=== PATIENT | male | born 1985 | race Hispanic/Latino ===

== ENCOUNTER 2018-03-25 12:13 | Emergency (ER) | payer SELFPAY ==
[2018-03-25 12:44] VITALS: BP 109/84
--- NOTE | 2018-03-25 16:26 | Emergency Department Report ---
Blank Doc - Documentation Documentation: 32-year-old male came in complaining of right hand pain for past 2 weeks on and off. Patient states that he went bowling about 2 weeks ago and then he scraped part of the skin off and that he doesn't know if he got bit he's been having pain and swelling in his right hand. Patient denies any fever or chills. She denies any nausea vomiting suspicious of breath. Patient has a good mobility of the hand, good pulses present exam: + slight erythema noted on the right hand, good pulses present, able to move hand in all directions
[2018-03-25 16:48] LABS: Basophils # (Auto) 0.1 K/mm3 (0.0-0.1); Basophils % (Auto) 1.1 % (0.0-1.8); Eosinophils # (Auto) 0.5 K/mm3 (0.0-0.4); Eosinophils % (Auto) 4.3 % (0.0-4.3); Hematocrit 46.7 % (35.5-45.6); Hemoglobin 15.8 gm/dl (11.8-15.2); Lymphocytes # (Auto) 1.9 K/mm3 (1.2-5.4); Lymphocytes % (Auto) 16.4 % (13.4-35.0); Mean Corpuscular HGB Conc 34 % (32-34); Mean Corpuscular Hemoglobin 31 pg (28-32); Mean Corpuscular Volume 90 fl (84-94); Monocytes # (Auto) 0.9 K/mm3 (0.0-0.8); Monocytes % (Auto) 7.5 % (0.0-7.3); Platelet Count 174 K/mm3 (140-440); Red Blood Count 5.19 M/mm3 (3.65-5.03); Red Cell Distribution Width 12.9 % (13.2-15.2)
[2018-03-25 17:00] LABS: Alanine Aminotransferase 19 units/L (7-56); Albumin 4.1 g/dL (3.9-5); BUN/Creatinine Ratio 15; Blood Urea Nitrogen 9 mg/dL (9-20); Calcium 8.8 mg/dL (8.4-10.2); Hemolysis Index 3
--- NOTE | 2018-03-25 17:06 | XRay Report ---
FINAL REPORT PROCEDURE: XR HAND 3+V RT TECHNIQUE: Right hand, AP and lateral views HISTORY: RT hand pain COMPARISON: No prior studies are available for comparison. FINDINGS: No acute fracture or dislocation is seen. No focal osseous lesions are identified. IMPRESSION: No acute fracture is identified
[2018-03-25] MEDS ORDERED: ZOSYN/NS 3.375GM/50ML 3.375 GM/50 ML BAG IV ONE (18:00)
--- NOTE | 2018-03-25 20:16 | Emergency Department Report ---
Upper Extremity - [facility] Chief Complaint: Extremity Injury, Upper Stated Complaint: RIGHT HAND SWOLLEN Time Seen by Provider: 03/25/18 16:07 Upper Extremity: Right Hand (redness swelling and pain), Right Thumb (redness swelling and pain) Occurred When: >5 Days (2 weeks) Mechanism: Unsure Severity: severe (8/10) Symptoms: Yes Pain with Movement (right thumb and hand), Yes Swelling (right thumb and hand), Yes Laceration or Abrasion (scratch caroline noted to right thumb I ), No Deformity, No Limited Range of Movement (no limitation or pain with movement), No Numbness, No Weakness, No Bruising/Ecchymosis Other History: 32-year-old male came in complaining of right hand pain for past 2 weeks on and off. Patient states that he went bowling about 2 weeks ago and then he scraped part of the skin off and that he doesn't know if he got bit he' s been having pain and swelling in his right hand. Patient denies any fever or chills. She denies any nausea vomiting suspicious of breath. Denies any nausea or vomiting. Patient reports that it started with his right thumb and it spread to his hand. Pain is 8 out of 10 worse with movement better with rest then. He denies taking any medication and said his tetanus vaccine is less than 4 years. Denies restriction of movement to his hand. Positive redness swelling and pain right hand. Patient is right handed ED Review of Systems ROS: Stated complaint: RIGHT HAND SWOLLEN Other details as noted in HPI Constitutional: denies: chills, fever Eyes: denies: eye pain, eye discharge, vision change ENT: denies: ear pain, throat pain Respiratory: denies: cough, shortness of breath, SOB with exertion, SOB at rest , wheezing Cardiovascular: denies: chest pain, palpitations, edema, syncope Gastrointestinal: denies: abdominal pain, nausea, vomiting, diarrhea Musculoskeletal: joint swelling (a thumb and hand), arthralgia (right hand and fingers of right hand). denies: back pain Skin: rash (abrasion right thumb). denies: lesions Neurological: denies: headache, weakness, numbness, paresthesias, confusion, abnormal gait, vertigo ED Past Medical Hx - Past Medical History Previous Medical History?: Yes Hx Asthma: Yes - Surgical History Past Surgical History?: No - Family History Family history: hypertension - Social History Smoking Status: Current Some Day Smoker Substance Use Type: None Other Social History: Lives with family - Medications Home Medications: Home Medications Medication Instructions Recorded Confirmed Last Taken Type Acetaminophen/Codeine [Tylenol 1 tab PO Q6H PRN #12 tab 03/25/18 Unknown Rx /Codeine # 3 tab] Cephalexin [Keflex] 500 mg PO Q8HR 10 Days #30 cap 03/25/18 Unknown Rx Ibuprofen [Motrin] 600 mg PO Q8H PRN #15 tablet 03/25/18 Unknown Rx Sulfamethoxazole/Trimethoprim 1 each PO BID 10 Days #20 tablet 03/25/18 Unknown Rx [Bactrim DS TAB] Upper Extremity Exam - Exam General: Vital signs noted. No distress. Alert and acting appropriately. This is a 32-year-old male well-nourished well-developed in no acute distress and nontoxic in appearance. Head and Torso: No HEENT Abnormality (Normal exam), No Neck Tenderness (Full ROM. supple), No Chest/Lungs Abnormality (No CWT. CTAB), No Abdominal Tenderness (NTTP. ), No Back Tenderness (No vertebral tenderness) Shoulder Exam: Yes Normal Range of Motion in Shoulder, No Shoulder Tenderness Arm Exam: No Arm/Humerus Tenderness, No Arm Deformity Elbow: Yes Normal Range of Motion in Elbow, No Elbow Tenderness, No Elbow Deformity Forearm: No Forearm Tenderness, No Forearm Deformity, No Pain with Pronation, No Pain with Supination Wrist: Yes Normal ROM in Wrist, No Wrist Tenderness, No Wrist Deformity, No Snuffbox Tenderness, No Pain with Axial Thumb Compression Hand: Yes Hand Tenderness (Rt hand dorsom,), Yes Digit Tenderness (Rt Thumb), Yes Normal ROM in Digit(s) (Pain with ROM. No rstriction in MVMT), No Hand Deformity, No Digit(s) Deformity, No Tendon Dysfunction CMS Exam: Yes Broken Skin (Rt thumb siatall with small sore. scabbing noted), Yes Normal Distal Pulses (2+ radial /Ulnar pulses), Yes Normal Capillary Refill (< 3 secs BUE), Yes Normal Distal Sensation (Good CMST to upper extremities) Hand L/R Back: 1 - Redness, swelling and TTP . NL rom 2 - Rt thumb swelling, redness, TTP extending distally,proximall and to dorsom of RT hand. FROM. minimal induration around nail bed without fluctuance. ED Course Vital Signs 03/25/18 12:41 Temperature 98.6 F Pulse Rate 85 Respiratory 18 Rate Blood Pressure 109/84 O2 Sat by Pulse 97 Oximetry Vital Signs 03/25/18 03/25/18 12:41 21:14 Temperature 98.6 F 99.5 F Pulse Rate 85 76 Respiratory 18 20 Rate Blood Pressure 109/84 O2 Sat by Pulse 97 99 Oximetry - Reevaluation(s) Reevaluation #1: 03/25/18 20:54 She was screened by Dr. Ludwig and penicillin 3.375 g given IV for cellulitis of right thumb and hand. Patient had no adverse reaction from medication TD UTD Reevaluation #2: 03/25/18 21:09 Patient given Hondo 5/325 mg 2 tablets by mouth for right hand and finger pain but he said he could not wait to be reevaluated for effectiveness of medication. ED Medical Decision Making - Lab Data Result diagrams: 03/25/18 16:28 03/25/18 16:28 Lab Results 03/25/18 03/25/18 03/25/18 Range/Units 16:28 16:28 16:28 WBC 11.6 H (4.5-11.0) K/mm3 RBC 5.19 H (3.65-5.03) M/mm3 Hgb 15.8 H (11.8-15.2) gm/dl Hct 46.7 H (35.5-45.6) % MCV 90 (84-94) fl MCH 31 (28-32) pg MCHC 34 (32-34) % RDW 12.9 L (13.2-15.2) % Plt Count 174 (140-440) K/mm3 Lymph % (Auto) 16.4 (13.4-35.0) % [place] % (Auto) 7.5 H (0.0-7.3) % Eos % (Auto) 4.3 (0.0-4.3) % Baso % (Auto) 1.1 (0.0-1.8) % Lymph # 1.9 (1.2-5.4) K/mm3 [place] # 0.9 H (0.0-0.8) K/mm3 Eos # 0.5 H (0.0-0.4) K/mm3 Baso # 0.1 (0.0-0.1) K/mm3 Seg Neutrophils % 70.7 H (40.0-70.0) % Seg Neutrophils # 8.2 H (1.8-7.7) K/mm3 Sodium 137 (137-145) mmol/L Potassium 4.2 (3.6-5.0) mmol/L Chloride 102.4 (98-107) mmol/L Carbon Dioxide 25 (22-30) mmol/L Anion Gap 14 mmol/L BUN 9 (9-20) mg/dL Creatinine 0.6 L (0.8-1.5) mg/dL Estimated GFR > 60 ml/min BUN/Creatinine Ratio 15 % Glucose 96 (75-100) mg/dL Lactic Acid 0.70 (0.7-2.0) mmol/L Calcium 8.8 (8.4-10.2) mg/dL Total Bilirubin 0.40 (0.1-1.2) mg/dL AST 14 (5-40) units/L ALT 19 (7-56) units/L Alkaline Phosphatase 91 (35-129) units/L Total Protein 7.2 (6.3-8.2) g/dL Albumin 4.1 (3.9-5) g/dL Albumin/Globulin Ratio 1.3 % - Radiology Data Radiology results: report reviewed X-ray of right hand No acute fracture or dislocation seen. No osseous lesions seen. No mention of soft tissue swelling but patient with obvious swelling to right thumb extending down to his right hand at first and second metacarpal bone . Films reviewed and no fractures seen. - Medical Decision Making ED Course Diagnosis 1: Rt hand Cellulites/ Paronychia rt thumb-Zosyn 3.375 gm iv x1 in ED and will send home on abx. TD vacine UTD. Unable to I&D rt thumb due no fluctance 2-RT hand pain/arthralgia: Hondo 5/325 mg 2 tabs po given in ED will send home on pain meds. Pain Stable 3: nicotine abuse-encouraged to Stop smoking as this can cause worsening infection 4: low grade fever 99.5- Encourage to take Motrin q8hrs x 2 days and then PRN. Start po ABX tonight Xray RT shows no FX or dislocation . No mention of soft tissue in report but soft tissue swelling obvious on exam. X-ray films reviewed . See radiology report for details. CBC and cmp stable. except elevation in WBC Patient Educated on xray results, meds, diagnosis, labs and outpatient followup. Patient Educated signs and symptoms of worsening infection referral to orthopedist and [facility] as PT does not have PCP Educated on nicotine effects on infection. Smoking cessation encourages Pt voiced understanding of discharge information Vital signs are stable and he temp 99.5 prior to discharge. Patient discharged home in stable condition with family from emergency room with prescription for Bactrim DS , Keflex, Tylenol #3 and Motrin - Differential Diagnosis contusion, FX, cellullitis, Paronychia, osteimyelitis Critical care attestation.: If time is entered above; I have spent that time in minutes in the direct care of this critically ill patient, excluding procedure time. ED Disposition Clinical Impression: Arthralgia of right hand, Cellulitis of right hand, Paronychia of right thumb Disposition: [id number] TO HOME OR SELFCARE Is pt being admited?: No Does the pt Need Aspirin: No Condition: Stable Instructions: Paronychia (ED), Cellulitis (ED), Arthralgia (ED) Additional Instructions: Please follow-up with [facility] for primary care visit in follow- up right hand cellulitis. If he cannot follow up with them then he needs to return to the emergency room for reevaluation. If you notice increasing redness, swelling, pain, restriction in movement in the right hand and fingers including the right wrist, please return to the emergency room ZAHRA Take Tylenol No. 3 for severe pain please do not drive or operate heavy machinery while taking this medication as it causes drowsiness Motrin for mild to moderate pain. Take this medication with food to prevent nausea or upset stomach. Take Bactrim and Keflex antibiotic for infection. Keep affected area to right hand clean and dry and avoid getting in area contaminated. Practice good hand hygiene Subtle right thumb in warm water 3-4 times a day to facilitate drainage. Prescriptions: Acetaminophen/Codeine [Tylenol /Codeine # 3 tab] 1 tab PO Q6H PRN #12 tab PRN Reason: severe pain right hand Cephalexin [Keflex] 500 mg PO Q8HR 10 Days #30 cap Ibuprofen [Motrin] 600 mg PO Q8H PRN #15 tablet PRN Reason: mild to moderate pain right velasquez Sulfamethoxazole/Trimethoprim [Bactrim DS TAB] 1 each PO BID 10 Days #20 tablet Referrals: [facility] [place] [Outside] - 03/28/18 ERASMO COLE MD [Staff Physician] - 03/28/18 Forms: Accompanied Note, Work/School Release Form(ED)
[2018-03-25] MEDS ORDERED: NORCO 5/325 PO ONE (20:55)
== END 2018-03-25 21:12 | disposition home or self-care (01) ==
LOC: ED 12:13
DX: L03.011 Cellulitis of right finger (principal); J45.909 Unspecified asthma, uncomplicated; F17.200 Nicotine dependence, unspecified, uncomplicated
CPT/HCPCS: 36415; 73130; 80053; 82140; 85025; 96365; 99284; J2543